=== PATIENT | male | born 1980 | race Two or more races ===

== ENCOUNTER 2023-09-24 12:35 | Emergency (ER) | payer MEDICAID ==
[~2023-09-24] VITALS: Ht 188 cm; Wt 80.0 kg
[2023-09-24 12:53] VITALS: BP 132/83; PULSE 100; RESP 16; O2SAT 97
[2023-09-24] MEDS ORDERED: cefTRIAXone SOD 1,000 MG VL IM ONE (14:00)
[2023-09-24] MEDS ORDERED: ONDANSETRON HCL 4 MG/2 ML VIAL IV ONE (14:00)
[2023-09-24] MEDS ORDERED: SODIUM CHLORIDE 0.9% 1,000 ML IV ONE (14:00)
[2023-09-24 14:15] LABS: Basophils # (auto) 0 10 ^3/uL (0-0.2); Basophils % (auto) 0.3 % (0.0-2.0); Eosinophils # (auto) 0 10 ^3/uL (0-0.8); Hematocrit 45.7 % (41.0-53.0); Lymphocytes # (auto) 0.5 10 ^3/uL (0.4-5.4); Lymphocytes % (auto) 15.4 % (10.0-50.0); Mean Corpuscular Hemoglobin 31.1 pg (28.0-32.0); Mean Corpuscular Volume 88.8 fL (80.0-100.0); Monocytes # (auto) 0.3 10 ^3/uL (0-1.3); Monocytes % (auto) 9.6 % (0.0-12.0); Neutrophils # (auto) 2.4 10 ^3/uL (1.6-8.6); Neutrophils % (auto) 74.7 % (37.0-80.0); Nucleated Red Blood Cells % 0.3 %; Red Blood Cells 5.15 10^6/uL (4.5-5.90); Red Cell Distribution Width 12.6 % (11.8-14.3); White Blood Cell 3.3 10^3/uL (4.4-10.8)
[2023-09-24 14:29] VITALS: TEMP 98
[2023-09-24 14:49] LABS: Alanine Aminotransferase 31 U/L (7-40); Albumin 4.5 g/dL (3.2-4.8); Alkaline Phosphatase 47 U/L (46-116); Anion Gap 11 (5-15); Aspartate Aminotransferase 52 U/L (13-40); BUN/Creatinine Ratio 14.9 (10.0-20.0); Bilirubin, Total 0.3 mg/dL (0.2-1.0); Blood Urea Nitrogen 22 mg/dL (9-23); Calcium 9.1 mg/dL (8.5-10.1); Carbon Dioxide 23 mmol/L (20-30); Chloride 100 mmol/L (98-107); Glucose 101 mg/dL (74-106); Potassium 3.8 mmol/L (3.5-5.1); Sodium 134 mmol/L (136-145); Total Protein 7.4 g/dL (5.7-8.2)
== END 2023-09-24 16:03 | disposition home or self-care (01) ==
LOC: ER 12:35 → EDBD 12:35 → ER 16:03
DX: J03.90 Acute tonsillitis, unspecified (principal); R11.2 Nausea with vomiting, unspecified; R19.7 Diarrhea, unspecified
CPT/HCPCS: 36415; 80053; 85025; 96361; 96372; 96374; 99284; J0696; J2405; J7030

== ENCOUNTER → 2025-06-07 | Outpatient (CLI) | payer MEDICAID ==
[~2025-06-07] VITALS: Ht 188 cm; Wt 88.5 kg
[~2025-06-07] MED LIST: BACL20TA PO; BICT1TAB PO; CHOLCAP4 PO; CLON0.5T3 PO; HYDR-4924 PO; LURA40TA2 PO; MIRT-93 PO; ROPI1TAB78 PO
[2025-06-07 14:59] LABS: Hematocrit 45.7 % (41.0-53.0); Hemoglobin 16.0 g/dL (13.5-17.5); Mean Corpuscular Hemoglobin 31.8 pg (28.0-32.0); Mean Corpuscular Volume 91.1 fL (80.0-100.0); Nucleated Red Blood Cells % 0.3 %
[2025-06-07 15:14] LABS: INR 1.04 (0.9-1.15); Partial Thromboplastin Time 25.8 SEC (24.5-34.5); Prothrombin Time 11.0 sec (9.3-11.8)
[2025-06-07 15:39] LABS: Alanine Aminotransferase 20 U/L (7-40); Alkaline Phosphatase 56 U/L (46-116); Anion Gap 8 (5-15); BUN/Creatinine Ratio 8.9 (10.0-20.0); Blood Urea Nitrogen 11 mg/dL (9-23); Calcium 10.1 mg/dL (8.7-10.4); Chloride 104 mmol/L (98-107); Glucose 86 mg/dL (74-106); Potassium 4.0 mmol/L (3.5-5.1); Sodium 143 mmol/L (136-145); Total Protein 7.3 g/dL (5.7-8.2)
[2025-06-07 15:40] LABS: Albumin 5.1 g/dL (3.2-4.8); Carbon Dioxide 31 mmol/L (20-31)
[2025-06-07 15:41] LABS: Bilirubin, Total 1.0 mg/dL (0.2-1.0)
== END | disposition home or self-care (01) ==
LOC: LAB 14:44 → EDSTATUS 06-09 11:45
PROVIDERS: ATTEND Specialist
DX: Z01.812 Encounter for preprocedural laboratory examination (principal); Z12.11 Encounter for screening for malignant neoplasm of colon
CPT/HCPCS: 36415; 80053; 85025; 85610; 85730